=== PATIENT | male | born 1990 | race Caucasian/White ===

== ENCOUNTER 2016-10-27 17:41 | Emergency (ER) | payer MEDICAID ==
[~2016-10-27] VITALS: Ht 177.8 cm; Wt 83.9 kg
[2016-10-27 17:44] VITALS: BP 130/83
--- NOTE | 2016-10-27 17:49 | NUR ---
BIB [facility] FROM [facility] FOR ETOH, WITH PD AT BEDSIDE, NO OTHER MEDICAL COMPLAINTS, PATIENT IS VERBALLY RESPONSIVE, PLACED ON MONITOR, MD AT BEDSIDE, NO RESPIRATORY DISTRESS OF CHEST PAIN, SLIGHTLY CONFUSED DUE TO USE OF ALCOHOL, WILL CONTINUE TO MONITOR CLOSELY.
--- NOTE | 2016-10-27 18:00 | NUR ---
[facility] #[id number] IV ACCESS BLOOD SAMPLE COLLECTED SENT TO LAB.
[2016-10-27] MEDS ORDERED: IV NS 0.9% 1,000 ML ONE (18:02)
[2016-10-27] MEDS ORDERED: IV SET PRIMARY PUMP SET 1 EA INFUS.SET MC ONE (18:02)
[2016-10-27 18:05] LABS: BASOPHILS % (AUTO) 0.3 % (0.0-2.0); EOSINOPHILS % (AUTO) 0.6 % (0.0-6.0); HEMATOCRIT 38 % (39-51); HEMOGLOBIN 12.9 g/dL (13.5-17.5); LYMPHOCYTES # (AUTO) 1.6 /CMM (0.8-4.8); LYMPHOCYTES % (AUTO) 31.4 % (20.0-44.0); MEAN CORPUSCULAR HEMOGLOBIN 30 PG (26.0-33.0); MEAN CORPUSCULAR HGB CONC 34 g/dl (31.0-36.0); MEAN CORPUSCULAR VOLUME 89 fL (80-96); MONOCYTES # (AUTO) 0.4 /CMM (0.1-1.30); MONOCYTES % (AUTO) 7.3 % (2.0-12.0); NEUTROPHILS % (AUTO) 60.4 % (43.0-81.0); PLATELET COUNT (AUTO) 206 /CMM (150-450); RDW COEFFICIENT OF VARIATION 15.9 (11.5-15.0)
[2016-10-27] MEDS: IV NS 0.9% 1,000 ML BAG IV ONE (18:15)
[2016-10-27 18:23] LABS: ALBUMIN 3.7 g/dL (3.4-5.0); BILIRUBIN,TOTAL 0.2 mg/dL (0.2-1.0); CALCIUM, SERUM 8.2 mg/dL (8.5-10.1); CREATININE 0.8 mg/dL (0.6-1.3); POTASSIUM 3.4 mmol/L (3.5-5.1); TOTAL PROTEIN, SERUM 7.2 g/dL (6.4-8.2)
[2016-10-27 18:27] LABS: SALICYLATE 2.2 mg/dL (2.8-20.0)
[2016-10-27 18:48] LABS: APPEARANCE,URINE CLEAR (CLEAR); BILIRUBIN,URINE NEGATIVE (NEGATIVE); BLOOD, URINE 2+ Ery/uL (NEGATIVE); COLOR,URINE YELLOW (YELLOW); KETONES,URINE NEGATIVE (NEGATIVE); LEUKOCYTE ESTERASE ,URINE NEGATIVE (NEGATIVE); NITRITE, URINE NEGATIVE (NEGATIVE); PH,URINE 5.5 (5.0-8.0); PROTEIN,URINE NEGATIVE (NEGATIVE); UGLUCOSE NEGATIVE (NEGATIVE); UROBILINOGEN,URINE 0.2 EU/dL (0.2)
[2016-10-27 19:01] LABS: RBC,URINE 0-2 /HPF (0-2); WBC,URINE 0-2 /HPF (0-3)
[2016-10-27 19:02] LABS: ADD URINE CULTURE NO; BACTERIA,URINE Rare /HPF (None Seen); SQUAMOUS EPITHELIAL CELL,UR Few /HPF (None Seen)
[2016-10-27 19:10] LABS: CANNABINOID, URINE NEGATIVE (NEGATIVE); PHENCYCLIDINE SCREEN,URINE NEGATIVE (NEGATIVE)
--- NOTE | 2016-10-27 19:45 | NUR ---
IV removed. Catheter intact and site benign. Pressure and 4x4 applied to site. No bleeding noted.
--- NOTE | 2016-10-27 19:52 | NUR ---
Patient eloped from facility. ER MD notified.
== END 2016-10-27 19:54 | disposition left against medical advice (07) ==
LOC: ER 17:42
DX: F15.10 Other stimulant abuse, uncomplicated (principal); F10.129 Alcohol abuse with intoxication, unspecified; F20.9 Schizophrenia, unspecified; F31.9 Bipolar disorder, unspecified
CPT/HCPCS: 36415; 80048-TC; 80076-TC; 80305; 81000-TC; 85025-TC; A4606; G0480; G6039-TC; J7030; Z7610

== ENCOUNTER 2018-09-06 02:58 | Emergency (ER) | payer MEDICARE, MEDICAID ==
--- NOTE | 2018-09-06 06:49 | NUR ---
See paper charting due to downtime. Including triage, initial assessment and continuous monitoring.
--- NOTE | 2018-09-06 07:15 | NUR ---
ASSUME PT CARE. RESTING IN BED, EASILY AROUSABLE,ON MONITOR W/ STABLE VITALS NOTED. WILL CONTINUE TO MONITOR.
--- NOTE | 2018-09-06 10:40 | NUR ---
Patient discharged to home in stable condition. Written and verbal after care instructions given. Patient verbalizes understanding of instruction.
[2018-09-06 10:41] VITALS: BP 121/77
== END 2018-09-06 10:42 | disposition home or self-care (01) ==
LOC: ER 02:58
DX: F10.129 Alcohol abuse with intoxication, unspecified (principal); Y90.9 Presence of alcohol in blood, level not specified

== ENCOUNTER 2021-06-09 18:58 | Emergency (ER) | payer MEDICAID, MEDICARE, OTHER ==
[~2021-06-09] VITALS: Ht 172.7 cm; Wt 96.2 kg
--- NOTE | 2021-06-09 19:48 | NUR ---
TAKEN TO CT
[2021-06-09] MEDS ORDERED: LEVETIRACETAM (500MG) 500 MG/5 ML VIAL IV ONE (19:50)
[2021-06-09] MEDS ORDERED: LEVETIRACETAM (500MG) 1,000 MG in IV NS 0.9% 100 ML IV ONE (20:00)
[2021-06-09] MEDS ORDERED: IV NS 0.9% 1,000 ML BAG IV ONE (20:00)
[2021-06-09 20:05] LABS: BASOPHILS % (AUTO) 0.4 % (0.0-2.0); EOSINOPHILS % (AUTO) 0.5 % (0.0-6.0); HEMATOCRIT 46 % (39-51); HEMOGLOBIN 15.6 g/dL (13.5-17.5); LYMPHOCYTES # (AUTO) 1.5 K/uL (0.8-4.8); LYMPHOCYTES % (AUTO) 16.5 % (20.0-44.0); MEAN CORPUSCULAR HGB CONC 34 g/dl (31.0-36.0); MEAN CORPUSCULAR VOLUME 95 fL (80-96); MONOCYTES # (AUTO) 0.5 K/uL (0.1-1.30); MONOCYTES % (AUTO) 5.9 % (2.0-12.0); NEUTROPHILS % (AUTO) 76.7 % (43.0-81.0); PLATELET COUNT (AUTO) 256 K/uL (150-450); RED BLOOD CELL COUNT(AUTO) 4.87 MIL/uL (4.5-6.0); WHITE BLOOD COUNT (AUTO) 9.1 K/uL (4.3-11.0)
[2021-06-09 20:19] LABS: CALCIUM, SERUM 8.9 mg/dL (8.5-10.1)
[2021-06-09 20:26] LABS: BILIRUBIN,TOTAL 0.2 mg/dL (0.2-1.0); TOTAL PROTEIN, SERUM 8.5 g/dL (6.4-8.2)
[2021-06-09 20:39] LABS: ALBUMIN 4.2 g/dL (3.4-5.0)
[2021-06-09] MEDS ORDERED: LEVE500T9 PO (20:54)
--- NOTE | 2021-06-09 21:13 | NUR ---
Patient discharged to home in stable condition. Written and verbal after care instructions given. Patient verbalizes understanding of instruction.
--- NOTE | 2021-06-09 22:16 | NUR ---
IV removed. Catheter intact and site benign. Pressure and 4x4 applied to site. No bleeding noted.
--- NOTE | 2021-06-09 22:16 | NUR ---
Patient discharged in stable condition. Written and verbal after care instructions given. Patient verbalizes understanding of instruction and rx. Pt left with [employer] in custody.
[2021-06-09 22:18] VITALS: BP 126/76
== END 2021-06-09 22:18 ==
LOC: ER 19:14
DX: G40.909 Epilepsy, unspecified, not intractable, without status epilepticus (principal); F17.200 Nicotine dependence, unspecified, uncomplicated; Z79.899 Other long term (current) drug therapy
CPT/HCPCS: 36415; 71045; 80048; 80076; 80320; 85025; 93005; 96361; 96365; 99285; J1953 ×2; J7030 ×2; G0480